=== PATIENT | female | born 1945 | race Caucasian/White ===

== ENCOUNTER 2017-10-18 20:13 | Inpatient (IN) | payer OTHER ==
[~2017-10-18] VITALS: Ht 171.4 cm; Wt 65.0 kg
[2017-10-18 20:39] VITALS: BP 188/64
[2017-10-18 22:35] VITALS: BP 160/72
[2017-10-19 02:30] VITALS: BP 164/67
[2017-10-19] MEDS ORDERED: TOPROL XL25 MG PO (04:01)
[2017-10-19] MEDS ORDERED: LASIX10 MG/ML PO (04:02)
[2017-10-19] MEDS ORDERED: TOPCARE OMEPRAZ20 MG PO (04:04)
[2017-10-19] MEDS ORDERED: K-TAB20 MEQ PO (04:06)
[2017-10-19] MEDS ORDERED: SYMB160 INH (04:08)
[2017-10-19] MEDS ORDERED: LOVASTATIN10 MG PO (04:09)
[2017-10-19 07:09] LABS: BASO # 0.1 10*3/uL (0.0-0.1); BASO % 0.6 % (0.0-1.0); EOS # 0.2 10*3/uL (0.0-0.4); EOS % 1.9 % (1.0-4.0); HEMATOCRIT 38.5 % (37.0-47.0); HEMOGLOBIN 13.1 g/dl (12.0-16.0); LYMPH # 2.6 10*3/uL (1.3-4.4); LYMPH % 29.3 % (27.0-41.0); MEAN CELL VOLUME 86.5 fl (81.0-99.0); MEAN CORPUSCULAR HGB 29.4 pg (27.0-31.0); MEAN PLATELET VOLUME 9.7 fl (9.6-12.3); MONO # 0.7 10*3/uL (0.1-1.0); MONO % 7.6 % (3.0-9.0); NEUT # 5.3 10*3/uL (2.3-7.9); NEUT % 59.9 % (47.0-73.0); PLATELET COUNT AUTOMATED 275 10*3/uL (130-400); RED BLOOD COUNT 4.45 10*6/uL (4.10-5.10); RED CELL DISTRI WIDTH 13.7 % (0-14.5); WHITE BLOOD COUNT 8.9 10*3/uL (4.8-10.8)
[2017-10-19 07:32] LABS: POTASSIUM 3.1 mmol/L (3.5-5.1)
[2017-10-19 07:57] LABS: CREATININE 1.15 mg/dL (0.55-1.02); FREE T4 1.23 ng/dl (0.76-1.46); PHOSPHOROUS 3.1 mg/dL (2.5-4.9); THYROID STIM HORMONE (HS) 1.41 uIU/ml (0.358-4.75)
[2017-10-19 08:00] VITALS: BP 172/62
[2017-10-19 12:00] VITALS: BP 164/60
[2017-10-19] MEDS ORDERED: METFORMIN1000 MG PO (13:09)
== END 2017-10-19 14:10 | disposition home or self-care (01) | DRG 395 ==
LOC: ED 20:13 → 4E 10-19 01:11
PROVIDERS: Internal Medicine
DX: T18.128A Food in esophagus causing other injury, initial encounter (principal); J44.9 Chronic obstructive pulmonary disease, unspecified; E11.9 Type 2 diabetes mellitus without complications; K21.9 Gastro-esophageal reflux disease without esophagitis; E78.5 Hyperlipidemia, unspecified; K52.9 Noninfective gastroenteritis and colitis, unspecified; I10 Essential (primary) hypertension; X58.XXXA Exposure to other specified factors, initial encounter; Y93.89 Activity, other specified; Y92.89 Other specified places as the place of occurrence of the external cause; Y99.8 Other external cause status; Z87.19 Personal history of other diseases of the digestive system; Z82.49 Family history of ischemic heart disease and other diseases of the circulatory system; Z88.0 Allergy status to penicillin; Z79.84 Long term (current) use of oral hypoglycemic drugs; Z79.899 Other long term (current) drug therapy

== ENCOUNTER 2023-03-20 12:09 | Emergency (ER) | payer MEDICARE ==
[~2023-03-20] VITALS: Wt 61.2 kg
[~2023-03-20 12:09] MED LIST: K-TAB20 MEQ PO; LASIX10 MG/ML PO; LOVASTATIN10 MG PO; METFORMIN1000 MG PO; SYMB160 INH; TOPCARE OMEPRAZ20 MG PO; TOPROL XL25 MG PO
[2023-03-20] MEDS ORDERED: HYDROCODONE-AC1 EAC1 PO (13:52)
== END 2023-03-20 14:04 | disposition home or self-care (01) ==
LOC: ED 12:09
DX: S20.221A Contusion of right back wall of thorax, initial encounter (principal); J44.9 Chronic obstructive pulmonary disease, unspecified; I10 Essential (primary) hypertension; Z88.0 Allergy status to penicillin; Z90.49 Acquired absence of other specified parts of digestive tract; Z98.890 Other specified postprocedural states; Z87.891 Personal history of nicotine dependence; W19.XXXA Unspecified fall, initial encounter; Y93.89 Activity, other specified; Y92.89 Other specified places as the place of occurrence of the external cause; Y99.8 Other external cause status

== ENCOUNTER 2024-10-02 23:33 | Emergency (ER) | payer OTHER ==
[~2024-10-02] VITALS: Ht 170.1 cm; Wt 61.2 kg
[~2024-10-02 23:33] MED LIST changes: +ALENDRONATE SOD70 M1 PO; +DOXYCYCLINE MO100 MG PO; +HYDROCODONE-AC1 EAC1 PO; +METOPROLOL SUCC50 M1 PO; +PREGABALIN50 MG PO; +TRAZODONE100 MG PO
[2024-10-03] MEDS ORDERED: SODIUM CHLORIDE 0.9% 1,000 ML IV ONE (00:55)
[2024-10-03] MEDS ORDERED: IOHEXOL 300 MG/ML 100 ML VIAL IV ONE (01:00)
[2024-10-03 01:21] LABS: BASO # 0.1 10*3/uL (0.0-0.1); BASO % 0.7 % (0.0-1.0); EOS # 0.1 10*3/uL (0.0-0.4); EOS % 1.4 % (1.0-4.0); HEMATOCRIT 38.7 % (37.0-47.0); MEAN CELL VOLUME 86.6 fl (81.0-99.0); MEAN CORPUSCULAR HGB 28.9 pg (27.0-31.0); MEAN CORPUSCULAR HGB CONC 33.3 g/dl (33.0-37.0); MEAN PLATELET VOLUME 9.4 fl (9.6-12.3); MONO # 0.9 10*3/uL (0.1-1.0); MONO % 9.1 % (3.0-9.0); NEUT # 6.9 10*3/uL (2.3-7.9); NEUT % 68.1 % (47.0-73.0); PLATELET COUNT AUTOMATED 414 10*3/uL (130-400); RED BLOOD COUNT 4.47 10*6/uL (4.10-5.10); RED CELL DISTRI WIDTH 13.3 % (0-14.5); WHITE BLOOD COUNT 10.2 10*3/uL (4.8-10.8)
[2024-10-03 01:43] LABS: POTASSIUM 3.4 mmol/L (3.4-5.1); TOTAL PROTEIN 7.5 gm/dL (6.0-8.0)
[2024-10-03 02:10] LABS: BILIRUBIN Negative (Negative); BLOOD 1+ (Negative); CLARITY Clear (Clear); COLOR Yellow (Yellow); GLUCOSE Negative (Negative); KETONE Trace (Negative); LEUKO ESTERASE 2+ (Negative); NITRITE Negative (Negative); PH 6.5 (4.5-8.0); SPECIFIC GRAVITY 1.025 (1.001-1.030)
[2024-10-03 02:17] LABS: BACTERIA 2+; EPITHELIAL CELLS 21-30; WBC 16-20 wbc/hpf (0-5)
[2024-10-03] MEDS ORDERED: Promethazine Hydrochloride 25 MG/ML VIAL IV ONE (03:00)
[2024-10-03] MEDS ORDERED: Metoclopramide Hydrochloride 10 MG/2 ML VIAL IV ONE (03:35)
[2024-10-03] MEDS ORDERED: diphenhydrAMINE hydrochloride 50 MG/ML VIAL IV ONE (03:35)
[2024-10-03] MEDS ORDERED: Ciprofloxacin Hydrochloride 500 MG TAB PO ONE (04:30)
[2024-10-03] MEDS ORDERED: MORPHINE Sulfate 2 MG/ML SYR IV ONE (04:30)
[2024-10-03] MEDS ORDERED: CIPRO500 MG PO (04:33)
[2024-10-03] MEDS ORDERED: Ondansetron4 MG PO (04:33)
== END 2024-10-03 04:39 | disposition home or self-care (01) ==
LOC: ED 23:33
PROVIDERS: Internal Medicine
DX: N39.0 Urinary tract infection, site not specified (principal); R11.2 Nausea with vomiting, unspecified; J44.9 Chronic obstructive pulmonary disease, unspecified; I10 Essential (primary) hypertension; Z88.0 Allergy status to penicillin; Z90.49 Acquired absence of other specified parts of digestive tract; Z98.890 Other specified postprocedural states; Z87.891 Personal history of nicotine dependence